=== PATIENT | female | born 1990 | race Caucasian/White ===

== ENCOUNTER 2016-08-15 21:11 | Emergency (ER) | payer OTHER ==
[2016-08-15] MEDS ORDERED: Reglan 10 MG/2 ML IV ONE (21:51)
[2016-08-15] MEDS ORDERED: Sodium Chloride 0.9% 1000 ML 1,000 ML IV STA (21:51)
[2016-08-15] MEDS ORDERED: BENADRYL 50 MG/ML IV ONE (21:51)
--- NOTE | 2016-08-15 21:57 | ERPHSYRPT ---
- History of Present Illness Time Seen by Provider: 08/15/16 21:17 Source: patient Patient Subjective Stated Complaint: "SARAH BEEN HAVING BAD STOMACH PAIN AND VOMITING TODAY. I HAVE GASTROPARESIS AND I THINK ITS FLARING UP. Triage Nursing Assessment: PT ALERT AND ORIENTED, ANSWERS QUESTIONS APPROP. PT AMBULATORY WITH STEADY GAIT NOTED. RESPIRATIONS NONLABORED WITH LUNGS CTA. SKIN PINK WARM AND DRY. ABD SOFT AND NONTENDER TO LIGHT PALPATION. BOWEL SOUNDS PRESENT IN ALL 4 QUADS. Physician History: CC: vomiting Hx: 25 y/o patient of Dr Londono with hx of gastroparesis, migraines, and anxiety. She takes topamax, diet pills, compazine, phenergan, lortab, imitrex, valium, and zanaflex at home. She is not out of her medications. She has vomiting since this AM, all day. Abd pain like prior gastroparesis. No diarrhea or fever. Normal urination. LMP Feb 1. She has several allergies. Has had normal CT scans of the abdomen here in past. No headache today. She has wound on right antecub with dressings- she reports infection with surgery per Dr Gan. ALL: IV dye, fentanyl, toradol, tramadol, demerol, morphine. Timing/Duration: today Severity: moderate Allergies/Adverse Reactions: Iodinated Contrast Media - Oral and [Iodinated Contrast Media - IV Dye] Allergy (Verified 08/15/16 22:01) Hives metoclopramide [From Reglan] Allergy (Verified 08/15/16 22:00) fentanyl Adverse Reaction (Mild, Verified 08/15/16 22:01) Headache ketorolac [From Toradol] Adverse Reaction (Verified 08/15/16 22:01) Headache meperidine [From Demerol] Adverse Reaction (Verified 08/15/16 22:01) Headache morphine Adverse Reaction (Verified 08/15/16 22:01) Headache tramadol Adverse Reaction (Verified 08/15/16 22:01) Headache zolpidem [From Ambien] Adverse Reaction (Verified 08/15/16 22:01) Headache Home Medications: Sumatriptan Succinate [Imitrex] 6 mg SQ DAILY 03/18/16 [History] Tizanidine HCl 4 mg [Zanaflex 4 MG] 2 mg PO TIDPRN 03/18/16 [History] Topiramate 100 mg [Topamax 100 MG] 50 mg PO BID 03/18/16 [History] Diazepam [Valium] 5 mg PO 08/15/16 [History] Hydrocodone/Acetaminophen [Lortab 10-325 mg Tablet] 1 each PO Q4H PRN PRN [History] Hx Tetanus, Diphtheria Vaccination/Date Given: Yes Hx Influenza Vaccination/Date Given: Yes Hx Pneumococcal Vaccination/Date Given: No Immunizations Up to Date: Yes - Review of Systems Constitutional: No Fever, No Chills Eyes: No Symptoms Ears, Nose, & Throat: No Symptoms Respiratory: No Cough, No Dyspnea Cardiac: No Chest Pain Abdominal/Gastrointestinal: Abdominal Pain, Nausea, Vomiting, No Diarrhea Genitourinary Symptoms: No Dysuria Skin: No Rash Neurological: No Focal Weakness, No Headache, No Parasthesia All Other Systems: Reviewed and Negative - Past Medical History Pertinent Past Medical History: Yes Neurological History: Migraines ENT History: No Pertinent History Cardiac History: No Pertinent History Respiratory History: No Pertinent History Endocrine Medical History: No Pertinent History Musculoskeletal History: No Pertinent History GI Medical History: Other History: No Pertinent History Psycho-Social History: Anxiety, Panic Disorder Female Reproductive Disorders: No Pertinent History Other Medical History: gastroparesis - Past Surgical History Past Surgical History: Yes Cardiac: No Pertinent History Respiratory: No Pertinent History Gastrointestinal: Cholecystectomy Genitourinary: No Pertinent History Musculoskeletal: Other Female Surgical History: No Pertinent History Other Surgical History: COSMETIC TO LT ARM AND KNEE. RECENT SURGERY TO RT ARM - Social History Smoking Status: Never smoker Exposure to second hand smoke: Yes Drug Use: none Patient Lives Alone: No - Female History Hx Last Menstrual Period: 07/20/16 - Nursing Vital Signs Nursing Vital Signs: Initial Vital Signs Temperature 97.3 F Temperature Source Oral Pulse Rate 64 Respiratory Rate 18 Blood Pressure [Left Arm] 122/78 Pain Intensity 8 - Physical Exam General Appearance: alert Eye Exam: PERRL/EOMI Ears, Nose, Throat Exam: normal ENT inspection, moist mucous membranes Neck Exam: normal inspection, non-tender, supple, No meningismus Respiratory Exam: normal breath sounds, lungs clear Cardiovascular Exam: regular rate/rhythm, No murmur Gastrointestinal/Abdomen Exam: soft, other (diffuse discomfort), No distention, No mass, No guarding Extremity Exam: normal inspection, normal range of motion Neurologic Exam: alert, oriented x 3, cooperative, sensation nml, No motor deficits Skin Exam: warm, dry, No rash SpO2 Interpretation: normal SpO2: 100 Oxygen Delivery: Room Air - Course Nursing assessment & vital signs reviewed: Yes - Radiology Ultrasound Exam OB Ultrasound: Other (per RDMS: some free fluid, clean adnexa, uterine decifual reaction, no sac seen but dates consistent with about 4 weeks so this is expected) Ordered Tests: Active Orders 24 hr Category Date Time Status Clean Catch Urine Specimen STAT Care 08/15/16 21:51 Active IV Insertion STAT Care 08/15/16 21:51 Active OB TRANSVAGINAL [US] Stat Exams 08/15/16 23:05 Ordered CBC W DIFF Stat Lab 08/15/16 22:36 Completed CMP Stat Lab 08/15/16 22:36 Completed HCG QUALITATIVE,SERUM Stat Lab 08/15/16 22:36 Completed HCG, Quantitative (Inhouse) Stat Lab 08/15/16 22:30 Received LIPASE Stat Lab 08/15/16 22:36 Completed UA W/ MICROSCOPIC Stat Lab 08/15/16 22:15 Completed Medication Summary Discontinued Medications Generic Name Dose Route Start Last Admin Trade Name Freq PRN Reason Stop Dose Admin Diphenhydramine HCl 25 mg 08/15/16 21:51 08/15/16 22:06 Benadryl 50 Mg/Ml IV 08/15/16 21:52 25 mg STAT ONE Administration Diphenhydramine HCl Confirm 08/15/16 22:05 Benadryl 50 Mg/Ml Administered 08/15/16 22:06 Dose 50 mg .ROUTE .STK-MED ONE Sodium Chloride 1,000 mls @ 999 mls/hr 08/15/16 21:51 08/15/16 22:06 Sodium Chloride 0.9% 1000 Ml IV 08/15/16 22:51 999 mls/hr .Q1H1M STA Administration Sodium Chloride Confirm 08/15/16 22:05 Sodium Chloride 0.9% 1000 Ml Administered 08/15/16 22:06 Dose 1,000 mls @ ud .ROUTE .STK-MED ONE Metoclopramide HCl 10 mg 08/15/16 21:51 08/15/16 21:57 Reglan 10 Mg/2 Ml IV 08/15/16 21:52 Not Given STAT ONE Lab/Rad Data: Laboratory Result Diagrams 08/15/16 22:36 08/15/16 22:36 Laboratory Results 08/15/16 08/15/16 08/15/16 Range/Units 22:36 22:36 22:36 WBC 6.0 (4.0-10.5) K/mm3 RBC 3.64 L (4.1-5.4) M/mm3 Hgb 9.8 L (12.0-16.0) gm/dl Hct 31.2 L (35-47) % MCV 85.7 (78-100) fl MCH 26.9 (26-32) pg MCHC 31.4 L (32-36) g/dl RDW 13.9 (11.5-14.0) % Plt Count 256 (150-450) K/mm3 MPV 9.8 H (6-9.5) fl Gran % 53.4 (36.0-66.0) % Lymphocytes % 35.9 (24.0-44.0) % Monocytes % 6.7 (0.0-12.0) % Eosinophils % 3.0 (0.00-5.0) % Basophils % 1.0 (0.0-0.4) % Basophils # 0.06 (0-0.4) Sodium 138 (136-145) mEq/L Potassium 4.4 (3.5-5.1) mEq/L Chloride 104 (98-107) mEq/L Carbon Dioxide 24.9 (21-32) mEq/L Anion Gap 13.3 (5-15) MEQ/L BUN 15 (9-20) mg/dL Creatinine 0.74 (0.55-1.30) mg/dl Estimated GFR > 60 ML/MIN Glucose 89 (70-110) MG/DL Calcium 8.5 (8.5-10.1) mg/dL Total Bilirubin 0.1 L (0.2-1.0) mg/dL AST 23 (15-37) U/L ALT 30 (12-78) U/L Alkaline Phosphatase 79 (46-116) U/L Serum Total Protein 7.0 (6.4-8.2) gm/dL Albumin 3.3 L (3.4-5.0) g/dL Lipase 146 (73-393) U/L Serum , Qual POSITIVE (Negative) Ur Collection Type Urine Color (YELLOW) Urine Appearance (CLEAR) Urine pH (5-6) Ur Specific [place] (1.005-1.025) Urine Protein (Negative) Urine Glucose (UA) (NEGATIVE) mg/dL Urine Ketones (NEGATIVE) Urine Nitrite (NEGATIVE) Urine Bilirubin (NEGATIVE) Urine Urobilinogen (0-1) mg/dL Urine WBC (Auto) (NEGATIVE) Urine RBC (Auto) (0-5) Robin/ul Urine Microscopic RBC (0-2) /HPF Urine Microscopic WBC (0-5) /HPF Ur Epithelial Cells (FEW) /HPF Urine Bacteria (NEGATIVE) /HPF Urine Mucus (NEGATIVE) /HPF Specimen Received 08/15/16 Range/Units 22:15 WBC (4.0-10.5) K/mm3 RBC (4.1-5.4) M/mm3 Hgb (12.0-16.0) gm/dl Hct (35-47) % MCV (78-100) fl MCH (26-32) pg MCHC (32-36) g/dl RDW (11.5-14.0) % Plt Count (150-450) K/mm3 MPV (6-9.5) fl Gran % (36.0-66.0) % Lymphocytes % (24.0-44.0) % Monocytes % (0.0-12.0) % Eosinophils % (0.00-5.0) % Basophils % (0.0-0.4) % Basophils # (0-0.4) Sodium (136-145) mEq/L Potassium (3.5-5.1) mEq/L Chloride (98-107) mEq/L Carbon Dioxide (21-32) mEq/L Anion Gap (5-15) MEQ/L BUN (9-20) mg/dL Creatinine (0.55-1.30) mg/dl Estimated GFR ML/MIN Glucose (70-110) MG/DL Calcium (8.5-10.1) mg/dL Total Bilirubin (0.2-1.0) mg/dL AST (15-37) U/L ALT (12-78) U/L Alkaline Phosphatase (46-116) U/L Serum Total Protein (6.4-8.2) gm/dL Albumin (3.4-5.0) g/dL Lipase (73-393) U/L Serum , Qual (Negative) Ur Collection Type CLEAN CATCH Urine Color YELLOW (YELLOW) Urine Appearance CLEAR (CLEAR) Urine pH 5.5 (5-6) Ur Specific [place] >=1.030 (1.005-1.025) Urine Protein 30 (Negative) Urine Glucose (UA) NEGATIVE (NEGATIVE) mg/dL Urine Ketones NEGATIVE (NEGATIVE) Urine Nitrite NEGATIVE (NEGATIVE) Urine Bilirubin NEGATIVE (NEGATIVE) Urine Urobilinogen 1 (0-1) mg/dL Urine WBC (Auto) NEGATIVE (NEGATIVE) Urine RBC (Auto) NEGATIVE (0-5) Robin/ul Urine Microscopic RBC 2-5 (0-2) /HPF Urine Microscopic WBC 5-10 (0-5) /HPF Ur Epithelial Cells MODERATE (FEW) /HPF Urine Bacteria MODERATE (NEGATIVE) /HPF Urine Mucus MANY (NEGATIVE) /HPF Specimen Received 08/15/16 2215 - Progress Progress Note: 08/15/16 21:56 Pt mother came out and remembered she is allergic to reglan. 08/15/16 23:06 HCG positive. Complains of nausea. Will get OB sonogram. 08/15/16 23:38 Advised follow up next week. No pain medications. Sip fluids. Rx PNV. Counseled pt/family regarding: lab results, diagnosis, need for follow-up, rad results - Departure Time of Disposition: 23:38 Departure Disposition: Home Clinical Impression: Early stage of Nausea & vomiting Qualifiers: Vomiting Intractability: intractable Condition: Stable Critical Care Time: No Referrals: KAESY LONDONO [Primary Care Provider] - Instructions: Vomiting -- Adult, -- Discomforts and Remedies Additional Instructions: Sip fluids. Tylenol if needed for discomfort. Avoid medication use during . Follow up with your doctor next week. Rx vitamins. Prescriptions: Vitamins/Fe Sulf/FA [ Tablet] 1 tab PO DAILY #30 tablet
[2016-08-15] MEDS ORDERED: BENADRYL 50 MG/ML ONE (22:05)
[2016-08-15] MEDS ORDERED: Sodium Chloride 0.9% 1000 ML 1,000 ML ONE (22:05)
[2016-08-15 22:40] LABS: Granulocytes % 53.4 % (36.0-66.0); Lymphocytes % 35.9 % (24.0-44.0); Mean Cell Volume 85.7 fl (78-100); Mean Corpuscular Hemoglobin 26.9 pg (26-32); Mean Platelet Volume 9.8 fl (6-9.5); Monocytes % 6.7 % (0.0-12.0); Platelet Count 256 K/mm3 (150-450); Red Blood Count 3.64 M/mm3 (4.1-5.4); Red Cell Distribution Width 13.9 % (11.5-14.0)
[2016-08-15 22:54] LABS: Bacteria MODERATE /HPF (NEGATIVE); COMPLETE URINE MICROSCOPIC? YES; Collection Type CLEAN CATCH; Epithelial Cells MODERATE /HPF (FEW); Mucus MANY /HPF (NEGATIVE); Ph 5.5 (5-6)
[2016-08-15 23:00] LABS: ALBUMIN 3.3 g/dL (3.4-5.0); ALKALINE PHOSPHATASE 79 U/L (46-116); ANION GAP 13.3 MEQ/L (5-15); BILIRUBIN,TOTAL 0.1 mg/dL (0.2-1.0); BLOOD UREA NITROGEN 15 mg/dL (9-20); CHLORIDE 104 mEq/L (98-107); Carbon Dioxide 24.9 mEq/L (21-32); Glucose 89 MG/DL (70-110); LIPASE 146 U/L (73-393); Potassium 4.4 mEq/L (3.5-5.1); SGOT/AST 23 U/L (15-37); SGPT/ALT 30 U/L (12-78); SODIUM 138 mEq/L (136-145)
[2016-08-16 00:56] VITALS: BP 129/69
[2016-08-16 00:57] VITALS: PULSE 84; O2SAT 97
--- NOTE | 2016-08-16 06:58 | XRAY ---
Indication: Pain. Positive testing. Two-dimensional transvaginal pelvic sonogram was performed. Comparison: None Uterus is anteverted measuring 8.6 x 4.3 x 5.6 cm. Endometrial cavity measures 1.5 cm in thickness. No gestational sac, pole, or heart tones. Left and right ovary sonographically unremarkable. Right ovary measures 2.8 x 1.7 x 3.0 cm and the left measures 3.5 x 2.0 x 3.8 cm. Small cul-de-sac fluid. No suspicious adnexal mass. Impression: Thickened endometrial stripe but no evidence for intrauterine gestational sac or heart tones. Correlate with serial beta hCG and follow-up sonogram. Small cul-de-sac fluid. Comment: Preliminary report was given.
== END 2016-08-16 00:56 | disposition home or self-care (01) ==
LOC: ED 21:11
DX: O21.9 Vomiting of pregnancy, unspecified (principal)
CPT/HCPCS: 36000; 36415; 76817; 80053; 81000; 83690; 84702; 84703; 85025; 96360; 96361; 96374; 99283; 99284; 99285; J1200